=== PATIENT | female | born 1940 | race Caucasian/White ===

== ENCOUNTER 2017-05-26 12:42 | Outpatient (CLI) | payer OTHER | END 2017-05-26 12:51 | disposition home or self-care (01) | LOC: RAD 12:42 | DX: S40.011A Contusion of right shoulder, initial encounter (principal); S40.021A Contusion of right upper arm, initial encounter ==

== ENCOUNTER 2017-10-09 14:07 | Outpatient (CLI) | payer OTHER | END 2017-10-09 14:18 | disposition home or self-care (01) | LOC: RAD 501 14:07 | DX: M25.512 Pain in left shoulder (principal); M79.622 Pain in left upper arm ==

== ENCOUNTER 2017-11-25 13:26 | Outpatient (CLI) | payer OTHER | END 2017-11-25 13:35 | disposition home or self-care (01) | LOC: RAD 13:26 | DX: M79.605 Pain in left leg (principal); M25.552 Pain in left hip; M25.551 Pain in right hip ==

== ENCOUNTER 2017-11-26 14:21 | Outpatient (CLI) | payer OTHER | END 2017-11-26 14:30 | disposition home or self-care (01) | LOC: SONOGRAMA 14:21 | DX: M17.12 Unilateral primary osteoarthritis, left knee (principal); M25.462 Effusion, left knee ==

== ENCOUNTER 2017-12-31 14:10 | Outpatient (CLI) | payer OTHER | END 2017-12-31 14:24 | disposition home or self-care (01) | LOC: TOM 14:10 | DX: M25.511 Pain in right shoulder (principal) ==

== ENCOUNTER 2018-03-13 13:24 | Outpatient (CLI) | payer OTHER | END 2018-03-13 13:46 | disposition home or self-care (01) | LOC: RAD 13:24 | DX: S29.9XXA Unspecified injury of thorax, initial encounter (principal); S49.91XA Unspecified injury of right shoulder and upper arm, initial encounter; M81.8 Other osteoporosis without current pathological fracture; N18.5 Chronic kidney disease, stage 5 ==

== ENCOUNTER 2018-03-16 10:35 | Outpatient (CLI) | payer OTHER | END 2018-03-16 11:19 | disposition home or self-care (01) | LOC: TOM 10:35 | DX: G91.0 Communicating hydrocephalus (principal); S42.291A Other displaced fracture of upper end of right humerus, initial encounter for closed fracture ==

== ENCOUNTER → 2018-11-11 | Outpatient (CLI) | payer OTHER | END | disposition home or self-care (01) | LOC: RAD 501 13:50 | DX: M25.512 Pain in left shoulder (principal) ==

== ENCOUNTER 2018-12-01 15:10 | Outpatient (CLI) | payer OTHER | END 2018-12-01 15:13 | disposition home or self-care (01) | LOC: TOM 15:10 | DX: N25.81 Secondary hyperparathyroidism of renal origin (principal) ==

== ENCOUNTER 2019-03-16 12:59 | Emergency (ER) | payer OTHER ==
[~2019-03-16] VITALS: Ht 154.9 cm; Wt 65.3 kg
[2019-03-16] MEDS ORDERED: SYMBICORT 80/10.2 GM (13:09)
[2019-03-16] MEDS ORDERED: ENULOSE10 GM/15 M (13:10)
[2019-03-16] MEDS ORDERED: ZYLOPRIM100 M1 (13:10)
[2019-03-16] MEDS ORDERED: NORVASC5 MG (13:10)
[2019-03-16] MEDS ORDERED: PROCTOZONE-HC30 GM (13:10)
[2019-03-16] MEDS ORDERED: ROCALTROL0.25 MCG (13:11)
[2019-03-16] MEDS ORDERED: CANDESARTAN CILE8 MG (13:11)
[2019-03-16] MEDS ORDERED: ASPIRIN81 MG (13:11)
[2019-03-16] MEDS ORDERED: CLONAZEPAM1 M1 (13:11)
[2019-03-16] MEDS ORDERED: DESVENLAFAXINE100 MG (13:12)
[2019-03-16] MEDS ORDERED: MILLIPRED5 MG (13:12)
[2019-03-16] MEDS ORDERED: IRON236 MG (13:12)
[2019-03-16] MEDS ORDERED: ISOSORBIDE MONO30 MG (13:12)
[2019-03-16] MEDS ORDERED: ZOCOR20 MG (13:13)
[2019-03-16] MEDS ORDERED: SEROQUEL XR300 MG (13:13)
[2019-03-16] MEDS ORDERED: SENSIPAR60 MG (13:13)
[2019-03-16] MEDS ORDERED: RANITIDINE HCL300 MG (13:13)
[2019-03-16] MEDS ORDERED: VITAMIN B122500 MCG (13:14)
== END 2019-03-17 09:46 | disposition home or self-care (01) ==
LOC: ER 12:59
DX: K64.5 Perianal venous thrombosis (principal); I12.0 Hypertensive chronic kidney disease with stage 5 chronic kidney disease or end stage renal disease; N18.5 Chronic kidney disease, stage 5

== ENCOUNTER 2019-04-28 14:13 | Outpatient (CLI) | payer OTHER ==
[~2019-04-28 14:13] MED LIST: ASPIRIN81 MG; CANDESARTAN CILE8 MG; CLONAZEPAM1 M1; DESVENLAFAXINE100 MG; ENULOSE10 GM/15 M; IRON236 MG; ISOSORBIDE MONO30 MG; MILLIPRED5 MG; NORVASC5 MG; PROCTOZONE-HC30 GM; RANITIDINE HCL300 MG; ROCALTROL0.25 MCG; SENSIPAR60 MG; SEROQUEL XR300 MG; SYMBICORT 80/10.2 GM; VITAMIN B122500 MCG; ZOCOR20 MG; ZYLOPRIM100 M1
== END 2019-04-28 14:15 | disposition home or self-care (01) ==
LOC: TOM 14:13
DX: E21.2 Other hyperparathyroidism (principal); M25.562 Pain in left knee